=== PATIENT | female | born 1975 | race Caucasian/White ===

== ENCOUNTER 2017-04-02 10:31 | Day surgery (SDC) | payer OTHER ==
[2017-04-02] VITALS (11 sets, daily range): BP systolic 112–150; BP diastolic 74–95; PULSE 68–83; RESP 14–16; O2SAT 98–100
[~2017-04-02] VITALS: Ht 157.5 cm; Wt 50.8 kg
[~2017-04-02 10:31] MED LIST: IBUP800T28 PO; Lactated Ringer's 1,000 ML IV SCH
[2017-04-02] MEDS ORDERED: fentaNYL-PF 50 mCg/mL 2 mL Inj ONE (10:32)
[2017-04-02] MEDS ORDERED: Ondansetron 2 mg/mL 2 mL Inj ONE (10:32)
[2017-04-02] MEDS ORDERED: Propofol 10,000 mCg/mL 20 mL Inj ONE (10:32)
[2017-04-02] MEDS ORDERED: Lactated Ringer's 1,000 ML IV ONE (11:46)
[2017-04-02] MEDS ORDERED: Lactated Ringer's 1,000 ML IV SCH (12:41)
[2017-04-02] MEDS ORDERED: Lactated Ringer's 500 ML IV PRN (12:41)
--- NOTE | 2017-04-02 12:41 | PCM.HPANE ---
Patient Data Date of Service: April 02, 2017 Surgeon Admitting Provider: Attending Provider:Viky Solorzano MD Primary Care Physician:Evelyn Boone MD Other Provider:Phillip Grace Anesthesia Reason for Visit Menorrhagia Ht/WT & BMI Height (Feet): 5 Height (Inches): 2.00 Weight (Kilograms): 50.800 Body Mass Index 20.00 Allergies Coded Allergies: No Known Allergies (Unverified , 09/25/16) Past Anesthesia History Anesthesia History: Denies:: Abnormal Airway, Anesthesia Reactions, Difficult Intubation, Fam Anesthesia Reaction Diabetes History Hx Diabetes?: No MRSA MRSA: No Medications Hypertension Medication: No Home Meds Incl Beta Kj: No Reported Medications Ibuprofen 800 Mg Tablet1,600 Mg PO DAILY PRN For Pain Ref 0 03/31/17 History History of ENT Problems?: Yes HEENT History: Denies:: Abnormal Airway Difficult Intubation Dysphagia Hearing Problem Sinus Problem TMJ Denture Type: None Teeth Condition: Broken Teeth Missing Teeth Other HEENT Pertinent History: recent hx of dental infection, 01/2017 Hx of Heart Problems?: No Cardiovascular History: Denies:: AICD Abdominal Aortic Aneurism Atrial Fibrillation Congestive Heart Failure Heart Murmur Hypertension Irregular Heartbeat Pacemaker Peripheral Vascular Rheumatic Fever Hx of Respiratory Problem?: No Respiratory History: Denies:: Asthma COPD Emphysema Oxygen Administration Pneumonia Tuberculosis Use of C-PAP Machine Use of Inhalers / NEBS Hx Neurologic Problems?: No Neurological History: Denies:: CVA Headaches Multiple Sclerosis Parkinson's Disease Seizures Hx of GI Problems?: No Hx of Problems?: No Genitourinary History: Denies:: Kidney Stones Urinary Tract Infection Female Hx: Denies:: Currently (tubal) Problems with Breasts? Skin History: Denies:: History Skin Disorders? Pressure Ulcers Hx Musculoskeletal Problems?: No Musculoskeletal History: Denies:: Back Injury Fibromyalgia Joint Replacement Musculoskeletal Trauma Osteoarthritis Rheumatoid Arthritis Systemic Lupus Hx of Psycho/Social Problems?: Yes Psycho Social History: Positive for:: Anxiety Hx Surgeries?: Yes (tubal, tonsil) Hx Any Other Health Problems?: Yes Other History: Positive for:: Cancer (pre cancerous cervix-) Denies:: Thyroid Disease History Blood Transfusions: Positive for:: Accept Blood Products? Denies:: Blood Transfusions Hx Diabetes: No Hx Alcohol Use: YesAlcoholic Drinks Per Day: a drink every few monthsHx Substance Use: No Smoking Status: Smoker Current Status UNK Have You Smoked inLast 12 mo: No Stop/Bang Treated for Sleep Apnea?: No Do You Have a CPAP Machine?: No P-Blood Pressure: treated: No B- Body Mass Index > 35 kg/m2: No A- Age over 50: No N- Neck Large Circumference: No G- Gender Male: No ABA Risk Assessment: Low Risk, <3 Yes Risk Assessment Category Category 1A: Patient has history of documented sleep apnea, and HAS NOT received any narcotic, sedative or anesthesia administration during this stay. Category 1B: Patient has history of documented sleep apnea, and HAS received any narcotic , sedative or anesthesia administration during this stay Category 2: Patient has SUSPECTED Obstructive Sleep Apnea, and HAS received any narcotic , sedative or anesthesia administration during this stay. Category 3: Patient has SUSPECTED Obstructive Sleep Apnea and HAS NOT received narcotic, sedative or anesthesia administration during this stay. Category 4: Outpatient in Procedural Areas with known sleep apnea or who screen positive for High Risk via the STOP/BANG questionnaire. Exam Exam Vital Signs Vital Signs Date Time Temp Pulse Resp B/P Pulse Ox O2 Delivery O2 Flow Rate FiO2 04/02/17 11:11 36.5 69 14 137/90 99 Room Air General Appearance: Alert, Oriented X3, Cooperative HEENT/AIRWAY: MP 2 Lungs: Clear to Auscultation, Normal Air Movement Heart: Regular Rate/Rhythm, Normal S1, Normal S2 Meds/Labs/Diagnostics Admission Meds Current Medications Lactated Ringer's (Lr) 1,000 ml @ ud STK-MED ONCE IV Last administered on t 11:46; Start 04/02/17 at 11:46; Stop 04/02/17 at 11:47; Status DC Plan Impression Patient chart reviewed, patient interviewed and anesthestic plan with risks, benefits, and alternatives discussed, and informed consent obtained. NPO per Anesth. Guidelines: Yes ASA Physical Status: ASA2 Mod Systemic Disease Anesthetic Plan: GA Bene/Risks/Altern/Consents: Yes HP Complete Prior to Induction: Yes Al Rosas MD April 02, 2017 11:52
[2017-04-02] MEDS ORDERED: Atropine 0.4 mg/mL Inj IVPUSH PRN (12:45)
[2017-04-02] MEDS ORDERED: HYDROmorphone 1 mg/mL Inj IVPUSH PRN (12:45)
[2017-04-02] MEDS ORDERED: hydrALAZINE 20 mg/mL Inj IVPUSH PRN (12:45)
[2017-04-02] MEDS ORDERED: MetoCLOpramide 5 mg/mL 2 mL Inj IVPUSH PRN (12:45)
[2017-04-02] MEDS ORDERED: Dexamethasone 4 mg/mL Inj IVPUSH PRN (12:45)
[2017-04-02] MEDS ORDERED: Ondansetron 2 mg/mL 2 mL Inj IVPUSH PRN ×2 (12:45→14:35)
[2017-04-02] MEDS ORDERED: Labetalol 5 mg/mL 4 mL Inj IV PRN (12:45)
[2017-04-02] MEDS ORDERED: EPHEDrine Sulfate 50 mg/mL Inj IVPUSH PRN (12:45)
[2017-04-02] MEDS ORDERED: Phenylephrine 10,000 mCg/mL Inj IVPUSH PRN (12:45)
[2017-04-02] MEDS ORDERED: diphenhydrAMINE 25 mg Capsule PO PRN (14:35)
[2017-04-02] MEDS ORDERED: oxyCODONE-Acetamin 5-325 mg Tablet PO PRN (14:35)
--- NOTE | 2017-04-02 14:41 | PCM.ANEP1 ---
Post Anesthesia Phase 1 PACU Phase 1 Assessment Date of Service: April 02, 2017 Vital Signs Vital Signs Date Time Temp Pulse Resp B/P Pulse Ox O2 Delivery O2 Flow Rate FiO2 04/02/17 14:35 81 16 140/81 100 Simple Mask 10 04/02/17 14:30 36.7 75 15 141/94 100 Simple Mask 10 04/02/17 11:11 36.5 69 14 137/90 99 Room Air Anesthetic Administered: GA Level of Alertness: Sleepy, easy to arouse HAWK's with Equal Strength: Yes Pain: No Nausea or Vomiting: No Airway Device: Oralpharangeal Airway Oxygen Delivery: Simple Mask Lungs: Clear to Auscultation, Normal Air Movement Dermatome Level: Full Sensation Complications: No Follow up Care: No Patient Instructions Provided: Yes Al Rosas MD April 02, 2017 14:41
[2017-04-02] MEDS: fentaNYL-PF 50 mCg/mL 2 mL Inj IVPUSH PRN ×3 (14:45→15:10)
--- NOTE | 2017-04-02 23:00 | OP ---
[address] [address] OPERATIVE REPORT PATIENT: BESS ASENCIO : 1975 MR#: [id number] ADMIT: 04/02/2017 JOB ID: [id number] DATE OF SURGERY: 04/02/2017 PREOPERATIVE DIAGNOSIS(ES): A 41-year-old, 4, para 4 with history of menorrhagia. Endometrial biopsy in the office showed proliferative endometrium. Patient opted for endometrial ablation. POSTOPERATIVE DIAGNOSIS(ES): A 41-year-old, 4, para 4 with history of menorrhagia. Endometrial biopsy in the office showed proliferative endometrium. Patient opted for endometrial ablation. PROCEDURE: 1. Hysteroscopy, dilation and curettage. 2. NovaSure endometrial ablation. SURGEON: Viky Solorzano MD. BUSINESS ARCHITECT: Mimi Haas MD. ANESTHESIA: General endotracheal. ESTIMATED BLOOD LOSS: 30 cc. INTRAVENOUS FLUIDS: 800 cc of crystalloid. HYSTEROSCOPIC DISTENTION MEDIA: Normal saline with a deficit of 300 cc at the end of the procedure. COMPLICATIONS: None. PACKS: None. DRAINS: None. CATHETERS: In-and-out catheter at the beginning of the procedure with clear urine retrieved. SPECIMEN REMOVED: Endometrial curettage and cervical curettage. Both sent to Pathology. FINDINGS: Examination under anesthesia revealed average-sized anteverted uterus. No adnexal masses appreciated bilaterally. OPERATIVE FINDINGS: Uterus sounded to 9 cm. Cervical canal measured. Cervical length was 3.5 cm with calculated uterine length of 5.5 cm. Maximum achieved uterine width with Novasure device was 2.6 cm. Ablation cycle completed in 142 seconds. Hysteroscopic examination confirmed adequate ablation of the entire endometrial cavity, including the uterine fundus. Pictures taken. *Hysteroscopic findings: Both tubal ostia were visualized. No masses, no fibroids, no polyps. PROCEDURE: Risks, benefits and alternatives of the procedure discussed with the patient. Informed consent signed. Patient moved to the OR with IV running. After general anesthesia was found to be adequate, patient was prepped and draped in the normal sterile fashion in dorsal lithotomy position. In-and-out straight catheter retrieved clear urine. Weighted speculum inserted into the patient's vagina. Anterior lip of the cervix grasped with a single-tooth tenaculum. Cervix dilated up to Hegar dilator #6. MyoSure scope introduced into the uterine cavity without any difficulty; normal saline used for distention media. The scope was removed. Endocervical curettage was performed, followed by endometrial curettage. NovaSure device was brought in. The array was opened outside patient's body and was confirmed to be intact. The device closed. Cervix was dilated up to Hegar dilator #8, and then the NovaSure device was introduced into the patient's uterus with the previously calculated uterine length of 5.5 cm. Array opened and appropriate movements; maximum achieved width of the uterine cavity was 2.6 cm. The NovaSure device checking was completed. This was followed by completion of the ablation cycle in 142 seconds. The array was closed. The NovaSure device removed from patient's uterus. The array was inspected outside the patient's body and was confirmed to be intact. MyoSure hysteroscope introduced and confirmed adequate ablation of the entire endometrial cavity, including the fundus. Pictures were taken. All instruments removed from patient's vagina. Single-tooth tenaculum insertion was noted to be bleeding. This was controlled with Monsel solution. Good hemostasis assured. Patient tolerated the procedure well. Sponge and instrument counts were correct x2. The patient was moved to recovery in a stable condition. Dr. Solorzano was present and scrubbed for the entire procedure. PAWEL
--- NOTE | 2017-04-06 14:30 | PATH ---
SURGICAL PATHOLOGY Attending Physician:Viky Solorzano MD CASE STATUS: Signed Out PATIENT NAME: BESS ASENCIO PID: [id number] : 1975 DATE COLLECTED:04/02/2017 00:00 SPECIMEN: 1: Endocervix, Curettage 2: Endometrium, Curettage CLINICAL HISTORY: MENORRHAGIA 1). ENDOCERVICAL CURETTAGE 2). ENDOMETRIAL CURETTAGE FINAL DIAGNOSIS: 1.ENDOCERVICAL CURETTINGS: FRAGMENTS OF PROLIFERATIVE ENDOMETRIUM, ENDOCERVICAL EPITHELIUM AND SQUAMOUS EPITHELIUM, ALL NEGATIVE FOR ATYPIA. 2.ENDOMETRIAL CURETTINGS: PROLIFERATIVE ENDOMETRIUM WITH FOCAL CHANGES OF GLANDULAR AND STROMAL BREAKDOWN, NEGATIVE FOR ATYPIA. FRAGMENTS OF SQUAMOUS EPITHELIUM, NEGATIVE FOR ATYPIA. ICD10 CODE N92.0 GROSS DESCRIPTION: The specimen is received in two formalin filled containers labeled with the patient's name. 1). The specimen is sublabeled "endocervical curettage" and consists of multiple portions of tissue and blood which aggregate to 0.9 x 0.5 x 0.2 CM. The specimen is filtered and entirely submitted in cassette 1A. 2). The specimen is sublabeled "endometrial curettage" and consists of multiple portions of tissue and blood which aggregate to 2.0 x 2.0 x 0.5 CM. The specimen is entirely submitted in cassette 2A. 04/03/2017 [facility] MICRO DESCRIPTION: See diagnosis. ICD-9 CODES: CPT CODES: 1: 69088 2: 13890 Electronically Signed Out Alen Bonilla MD [facility] Pathology [facility] [address] [place] [address] Technical component performed at [facility], [facility] [address], [place], [address]
== END 2017-04-02 23:59 | disposition home or self-care (01) ==
LOC: SAS 10:31
PROVIDERS: ATTEND Obstetrics & Gynecology
DX: N92.0 Excessive and frequent menstruation with regular cycle (principal); R93.8 Abnormal findings on diagnostic imaging of other specified body structures; F41.9 Anxiety disorder, unspecified; Z87.440 Personal history of urinary (tract) infections
CPT/HCPCS: 58563; 88305; J1885; J2250; J2405; J3010; J7120

== ENCOUNTER 2017-04-08 06:47 | Emergency (ER) | payer OTHER ==
[~2017-04-08] VITALS: Ht 154.9 cm; Wt 53.2 kg
[~2017-04-08 06:47] MED LIST changes: -Lactated Ringer's 1,000 ML IV SCH
[2017-04-08 06:51] VITALS: BP 135/93; PULSE 90; RESP 18
--- NOTE | 2017-04-08 07:12 | ED.REPORT ---
HPI- Female Date of Service April 08, 2017 ED Provider: History of Present Illness: 04/02/17 endometrial ablation with Viky Solorzano MD The patient is a 41 year old female with history of anxiety presents to the emergency department complaining of vaginal bleeding. The patient had a hysteroscopy and endometrial ablation, completed by Dr. Solorzano on April 02. Since the surgery she has noticed continued vaginal bleeding and mild pelvic discomfort. Her pain is worse with straining to have a bowel movement. She was given Percocet for pain but has been unable to take this due to it causing nausea. She has been taking ibuprofen with some relief. Yesterday she developed a sore throat ad cough, and has felt like she had a fever and chills. No one else around her has been sick with similar symptoms. She has tried over the counter cough syrup with minimal relief. She denies productive cough. Nursing Notes Stated Complaint: POST SURGERY BLEEDING AND COUGH Chief Complaint: General Complaint Nursing Notes Reviewed: Yes Allergies: Coded Allergies: No Known Allergies (Unverified , 09/25/16) Scheduled PRN Ibuprofen (Ibuprofen) 800 Mg Tablet 1,600 MG PO DAILY PRN PRN For Pain General Time Seen by MD: 07:10 Chief Complaint Vaginal bleeding..., Other (cough) Hx Obtained From: Patient Arrived By: Walk-in Sudden in Onset?: No Onset Occurred: 5 days ago Symptom Duration: Since onset Location: : Suprapubic Quality: Painful Severity: Current: Mild Severity: Maximum: Moderate Recent Healthcare: Recent doctor visit, Previous surgery Similar Sx Previous: No Past Medical History Past Medical History Anxiety Past Surgical History Tubal ligation Tonsillectomy Hysteroscopy and endometrial ablation Family History Noncontributory Smoking History Never Smoker Social History Alcohol Use: "Social" Drug Use: Denies drug use Other Social History: Good social support, Local resident Ambulatory Status Independent Review of Systems Constitutional: Reports: Chills, Fever Ears / Nose / Throat: Reports: Nasal congestion, Sore throat Female: Reports: Vaginal bleeding - abnl Complete sys rev & neg: except as marked. Respiratory: Reports: Non-productive cough, Denies: Prod cough, bloody, Prod cough, brown, Prod cough, clear, Prod cough , green, Prod cough, white, Prod cough, yellow Physical Exam Initial Vital Signs Vital Signs (First) Date Time Temp Pulse Resp B/P Pulse Ox O2 Delivery O2 Flow Rate FiO2 04/08/17 06:51 36.6 90 18 135/93 Room Air Initial VS: Reviewed Head / Eyes: Atraumatic, Normocephalic, PERRL Neck: Supple, Non-tender, Full range of motion Respiratory: Breath sounds normal, Clear to auscultation, No respiratory distress Cardiovascular: Regular rate & rhythm, Heart sounds normal, Intact distal pulses Abdomen / GI: Soft, Non-tender, No guarding, No rebound, No distention Lymphatic: No lymphadenopathy Extremities: Vascular intact, Neuro intact, No swelling, No tenderness Skin: Warm, Dry, No cyanosis Neurologic: Alert, Oriented, Nonfocal Psychiatric: Mood/affect normal, Behavior normal, Normal thought content General/Constitutional: Awake, Alert, Cooperative ENT: Airway patent, Mucous membranes moist, Pharynx NL, No peritonsillar abscess Pharynx / Tonsils / Uvula: Negative: Peritonsil abscess L, Peritonsil abscess R , Pharyngeal erythema, Tonsillar erythema L, Tonsillar erythema R, Tonsillar exudate L, Tonsillar exudate R, Tonsillar swelling L, Tonsillar swelling R nasal congestion Re-Eval/Medical Decision Source of Hx: Old records Re-Evaluation/Progress : Time of Eval: 07:27 Re-Evaluation/Progress Note: Discussed plan for discharge. All questions were addressed. Counseled Regarding: Diagnosis, Need for follow-up, When/why to return to ED Discharge & Departure Impression: Primary Impression: Upper respiratory infection URI type: unspecified URI Qualified Code: J06.9 - Acute upper respiratory infection, unspecified Additional Impressions: Cough Post-operative pain Disposition: Home Discharge Condition All VS Reviewed: Yes Condition: Stable Patient Instructions: Upper Respiratory Infection (GEN) Additional Instructions: Thank you for entrusting us with your care today. Your cough and congestion are probably related to a viral infection. Continue taking the ibuprofen regularly as needed for your pain and discomfort. You can try 1/4 of a Percocet tab for more severe pain, this may also help with your cough. I have also written you a prescription for Tessalon Pearls. This may also help with your cough. Make sure to rest and drink plenty of fluids. Followup with Dr. Solorzano as previously scheduled. Return to the emergency department for any new or concerning symptoms. Referrals: Evelyn Boone MD (PCP) Viky Solorzano MD Attestation Portions of this note were transcribed by Rohini Monreal. I, Dr. Grier personally performed the history, physical exam and medical decision-making; I reviewed and confirmed the accuracy of the information in the transcribed note. Signed by: Mone Rothman, 04/08/2017 at 0800. copies to: Viky Solorzano MD; Evelyn Boone MD, Shawna L MD April 08, 2017 07:12 Rohini Monreal April 08, 2017 07:21
== END 2017-04-08 07:47 | disposition home or self-care (01) ==
LOC: SED 06:47
DX: J06.9 Acute upper respiratory infection, unspecified (principal); G89.18 Other acute postprocedural pain; R05 Cough